=== PATIENT | female | born 1995 | race Caucasian/White ===

== ENCOUNTER 2016-08-05 17:01 | Emergency (ER) | payer OTHER ==
[~2016-08-05] VITALS: Ht 165.1 cm; Wt 65.0 kg
[2016-08-05 17:03] VITALS: BP 136/96; PULSE 75; RESP 14; TEMP 98.6; O2SAT 100
[2016-08-05] MEDS ORDERED: PROP50TA2 PO (20:41)
[2016-08-05] MEDS ORDERED: CALNTAB (20:41)
--- NOTE | 2016-08-05 20:43 | PD ---
HPI Chief Complaint: Related Problem Time Seen by Provider: 20:30 Travel History International Travel<30 days: No Contact w/Intl Traveler<30days: No Traveled to known affect area: No History of Present Illness HPI 21-year-old female with history of hyperthyroidism presents for evaluation of vaginal bleeding. Patient estimates that she is 5-1/2 weeks based on last menstrual period of June 27. The patient presents for evaluation of vaginal bleeding which started last evening. She describes it as yesterday evening being bright red blood, today more dark brown, with some small amount of either blood clot or mucus passing today. The amount of bleeding was small, not even enough to fill one pad. 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 She is currently on vacation from [place], just arrived yesterday. She reports that she had an ultrasound done yesterday at the hospital and she was told that they were able to see the gestational sac. She has been told that she is O+ blood type. She endorses some mild pelvic cramping which has been intermittent for the past 2 weeks. She endorses nausea for the past several weeks as well. Denies dysuria , flank pain. No other complaints. PFSH Past Medical History Narrative Medical History of hyperthyroidism Thyroid Disease: Yes (HYPERTHROIDISM) Tetanus Vaccination: Unknown Influenza Vaccination: No ?: LMP: 06/27/16 : 1 Para: 0 Social History Alcohol Use: No Tobacco Use: No Substance Use: No Allergies-Medications (Allergen,Severity, Reaction): Coded Allergies: No Known Allergies (Unverified , 08/05/16) Reported Meds & Prescriptions Reported Meds & Active Scripts Active Reported Calna ( Vitamin) 1 Tab Tab Propylthiouracil 50 Mg Tab 50 Mg PO TID Review of Systems Except as stated in HPI: all other systems reviewed are Neg Physical Exam Narrative GENERAL: Pleasant well-developed well-nourished female in no acute distress SKIN: Warm and dry. HEAD: Atraumatic. Normocephalic. EYES: Pupils equal and round. No scleral icterus. No injection or drainage. ENT: No nasal bleeding or discharge. Mucous membranes pink and moist. NECK: Trachea midline. No JVD. CARDIOVASCULAR: Regular rate and rhythm. No murmur appreciated. RESPIRATORY: No accessory muscle use. Clear to auscultation. Breath sounds equal bilaterally. GASTROINTESTINAL: Abdomen soft, non-tender, nondistended. Hepatic and splenic margins not palpable. MUSCULOSKELETAL: No obvious deformities. No edema. No CVA tenderness. NEUROLOGICAL: Awake and alert. No obvious cranial nerve deficits. Motor grossly within normal limits. Normal speech. PSYCHIATRIC: Appropriate mood and affect; insight and judgment normal. Data Data Last Documented VS Vital Signs Date Time Temp Pulse Resp B/P Pulse Ox O2 Delivery O2 Flow Rate FiO2 08/05/16 23:41 79 14 132/94 100 08/05/16 20:53 Room Air 08/05/16 17:03 98.6 Orders Beta Hcg (Quant/Titer) (08/05/16 20:39) Complete Blood Count With Diff (08/05/16 20:39) Basic Metabolic Panel (Bmp) (08/05/16 20:39) Complete Rh (08/05/16 20:39) Us Pelvis (Ques Pr/Ect)W Trans (08/05/16 ) Ed Urine Pregnancytest Poc (08/05/16 20:39) Labs Laboratory Tests Test 08/05/16 20:50 White Blood Count 9.6 TH/MM3 Red Blood Count 4.53 MIL/MM3 Hemoglobin 14.2 GM/DL Hematocrit 41.0 % Mean Corpuscular Volume 90.7 FL Mean Corpuscular Hemoglobin 31.4 PG Mean Corpuscular Hemoglobin 34.6 % Concent Red Cell Distribution Width 12.7 % Platelet Count 271 TH/MM3 Mean Platelet Volume 8.0 FL Neutrophils (%) (Auto) 62.1 % Lymphocytes (%) (Auto) 30.7 % Monocytes (%) (Auto) 6.1 % Eosinophils (%) (Auto) 0.8 % Basophils (%) (Auto) 0.3 % Neutrophils # (Auto) 6.0 TH/MM3 Lymphocytes # (Auto) 3.0 TH/MM3 Monocytes # (Auto) 0.6 TH/MM3 Eosinophils # (Auto) 0.1 TH/MM3 Basophils # (Auto) 0.0 TH/MM3 CBC Comment DIFF FINAL Differential Comment Sodium Level 138 MEQ/L Potassium Level 3.3 MEQ/L Chloride Level 105 MEQ/L Carbon Dioxide Level 25.8 MEQ/L Anion Gap 7 MEQ/L Blood Urea Nitrogen 8 MG/DL Creatinine 0.66 MG/DL Estimat Glomerular Filtration 112 ML/MIN Rate Random Glucose 85 MG/DL Calcium Level 8.6 MG/DL Human Chorionic Gonadotropin, [address] MIU/ML Quant Blood Type O POSITIVE Rho(D) Type POSITIVE MDM Medical Decision Making Medical Screen Exam Complete: Yes Emergency Medical Condition: Yes Medical Record Reviewed: Yes Differential Diagnosis Threatened , incomplete , missed , intrauterine , subchorionic hemorrhage, ectopic Narrative Course 21-year-old female last menstrual period On June 27 presents with light vaginal bleeding since last night. She endorses mild cramping intermittently for the past few weeks ever since she found out she was . Initial examination is reassuring. Her abdomen is soft, no peritoneal signs. We will check basic lab work, Rh type, quantitative beta hCG, formal ultrasound. Walter Saha Aug 05, 2016 20:43
[2016-08-05 20:53] VITALS: BP 136/92; PULSE 79; RESP 16; O2SAT 100
[2016-08-05 21:20] LABS: BASOPHIL % 0.3 % (0.0-2.0); EOSINOPHIL # 0.1 TH/MM3 (0-0.4); EOSINOPHIL % 0.8 % (0.0-4.0); HEMO FLAGS DIFF FINAL; LYMPH % 30.7 % (9.0-44.0); MEAN CELL VOLUME 90.7 FL (80.0-100.0); MEAN CORPUSCULAR HEMOGLOBIN 31.4 PG (27.0-34.0); MEAN CORPUSCULAR HGB CONC 34.6 % (32.0-36.0); MONO % 6.1 % (0.0-8.0); NEUT % 62.1 % (16.0-70.0); PLATELET COUNT 271 TH/MM3 (150-450); RED BLOOD COUNT 4.53 MIL/MM3 (4.00-5.30); RED CELL DISTRIBUTION WIDTH 12.7 % (11.6-17.2); WHITE BLOOD COUNT 9.6 TH/MM3 (4.0-11.0)
[2016-08-05 21:34] LABS: BICARBONATE 25.8 MEQ/L (21.0-32.0); POTASSIUM 3.3 MEQ/L (3.5-5.1)
--- NOTE | 2016-08-05 23:01 | RADRPT ---
EXAM DATE/TIME: 08/05/2016 21:39 [facility] COMPARISON: No previous studies available for comparison. INDICATIONS : Pelvic bleeding and cramping. LAB(S): Beta-hC,921 MEDICAL HISTORY : . Hyperthyroidism. SURGICAL HISTORY : Orthopedic surgery, left ankle. ENCOUNTER: Initial ACUITY: 2 days PAIN SCORE: 3/10 LOCATION: Bilateral pelvis MEASUREMENTS: UTERUS: 8.2 x 6.1 x 4.4 cm ENDOMETRIAL STRIPE: 18 mm RIGHT OVARY: 3.5 x 3.8 x 2.7 cm LEFT OVARY: 3.1 x 2.9 x 1.4 cm FINDINGS: There is a gestational sac within the uterus which contains a yolk sac however a pole is not cl early seen. Based on mean sac diameter an estimated gestational age of 5 weeks 5 days. No heart tones identified. There is a 1.5 cm hypoechoic area which may reflect a sliver-like subchorionic ble ed. Trace free fluid is noted in the cul-de-sac. The left ovary is normal. There is a hypoechoic cyst ic mass of the right ovary measuring 1.3 cm likely a corpus luteal cyst. CONCLUSION: Intrauterine gestation with yolk sac present however pole not seen at this time. A very early i ntrauterine gestation may have this appearance. Trace subchorionic bleed. Trace free fluid. Continued hCG followup and ultrasound followup suggested. Sheldon Oropeza MD on August 05, 2016 at 22:57 Board Certified Radiologist. This report was verified electronically.
--- NOTE | 2016-08-05 23:33 | PD ---
Data Data Last Documented VS Vital Signs Date Time Temp Pulse Resp B/P Pulse Ox O2 Delivery O2 Flow Rate FiO2 08/05/16 20:53 79 16 136/92 100 Room Air 08/05/16 17:03 98.6 Orders Beta Hcg (Quant/Titer) (08/05/16 20:39) Complete Blood Count With Diff (08/05/16 20:39) Basic Metabolic Panel (Bmp) (08/05/16 20:39) Complete Rh (08/05/16 20:39) Us Pelvis (Ques Pr/Ect)W Trans (08/05/16 ) Urinalysis - C+S If Indicated (08/05/16 20:39) Ed Urine Pregnancytest Poc (08/05/16 20:39) Labs Laboratory Tests Test 08/05/16 20:50 White Blood Count 9.6 TH/MM3 Red Blood Count 4.53 MIL/MM3 Hemoglobin 14.2 GM/DL Hematocrit 41.0 % Mean Corpuscular Volume 90.7 FL Mean Corpuscular Hemoglobin 31.4 PG Mean Corpuscular Hemoglobin 34.6 % Concent Red Cell Distribution Width 12.7 % Platelet Count 271 TH/MM3 Mean Platelet Volume 8.0 FL Neutrophils (%) (Auto) 62.1 % Lymphocytes (%) (Auto) 30.7 % Monocytes (%) (Auto) 6.1 % Eosinophils (%) (Auto) 0.8 % Basophils (%) (Auto) 0.3 % Neutrophils # (Auto) 6.0 TH/MM3 Lymphocytes # (Auto) 3.0 TH/MM3 Monocytes # (Auto) 0.6 TH/MM3 Eosinophils # (Auto) 0.1 TH/MM3 Basophils # (Auto) 0.0 TH/MM3 CBC Comment DIFF FINAL Differential Comment Sodium Level 138 MEQ/L Potassium Level 3.3 MEQ/L Chloride Level 105 MEQ/L Carbon Dioxide Level 25.8 MEQ/L Anion Gap 7 MEQ/L Blood Urea Nitrogen 8 MG/DL Creatinine 0.66 MG/DL Estimat Glomerular Filtration 112 ML/MIN Rate Random Glucose 85 MG/DL Calcium Level 8.6 MG/DL Human Chorionic Gonadotropin, [address] MIU/ML Quant Blood Type O POSITIVE Rho(D) Type POSITIVE MDM Supervised Visit with KADEN: Yes Narrative Course I, Dr. Hoffman, have reviewed the advance practice practitioner's documentation and am in agreement, met with the patient face to face, made the diagnosis, and the medical decision making was done by me. See his note for further details. Briefly this is a 21-year-old female who is , approximately 5.5 weeks , here from [place] for evaluation of vaginal bleeding and lower abdominal cramping. CBC is unremarkable. BMP is remarkable for potassium 3.3, otherwise unremarkable. Beta hCG is 20,921. Blood type is O+. Pelvic ultrasound: CONCLUSION: Intrauterine gestation with yolk sac present however pole not seen at this time. A very early intrauterine gestation may have this appearance. Trace subchorionic bleed. Trace free fluid. Continued hCG followup and ultrasound followup suggested. Patient was made aware of all findings. She is resting comfortably. She is going to be in [facility] for the next few days and is returning to [place] on Wednesday. At this point she is stable for discharge home with outpatient follow- up with her COMMERCIAL MANAGER doctor this week. She was informed on when to return to the emergency department. She verbalizes understanding and agreement with plan. Diagnosis Primary Impression: First trimester bleeding Additional Impression: Subchorionic hemorrhage Qualified Code: O41.8X11 - Subchorionic hemorrhage, first trimester, fetus 1 Referrals: [employer] 1 week Additional Instruction: Follow-up with your COMMERCIAL MANAGER doctor when you return to [place] in one week. Return to the emergency department for worsening symptoms or any other concerns. Disposition: 01 DISCHARGE HOME Condition: Stable Hammad Hoffman MD Aug 05, 2016 23:33
[2016-08-05 23:41] VITALS: BP 132/94
== END 2016-08-05 23:52 | disposition home or self-care (01) ==
LOC: NEPA 17:01
DX: O46.91 Antepartum hemorrhage, unspecified, first trimester (principal); O41.8X11 Other specified disorders of amniotic fluid and membranes, first trimester, fetus 1; O99.281 Endocrine, nutritional and metabolic diseases complicating pregnancy, first trimester; Z3A.01 Less than 8 weeks gestation of pregnancy
CPT/HCPCS: 76700; 76817; 80048; 84702; 84703; 85025; 86901